=== PATIENT | male | born 1985 | race Caucasian/White ===

== ENCOUNTER 2016-09-05 09:01 | Inpatient (IN) | payer OTHER ==
[2016-09-05] VITALS (8 sets, daily range): BP systolic 120–139; BP diastolic 81–87; PULSE 75–105; RESP 16–18; TEMP 98.3–99; O2SAT 95–100
[~2016-09-05] VITALS: Ht 177.8 cm; Wt 52.7 kg
[2016-09-05] MEDS ORDERED: NALOXONE HCL 0.4 MG/ML AMP IV PRN (09:30)
[2016-09-05] MEDS ORDERED: SODIUM CHLORIDE 0.9% FLUSH 5 ML FLUSH IVF PRN (09:30)
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
[2016-09-05] MEDS: 1/2 NS + KCL 20 MEQ INJ 1,000 ML IV SCH ×2 (12:00→22:00)
[2016-09-05] MEDS ORDERED: ACETAMINOPHEN/HYDROcodone 325 MG/5 MG TAB PO PRN (12:00)
[2016-09-05] MEDS: ONDANSETRON HCL 4 MG/2 ML VIAL IV PRN (12:01)
[2016-09-05] MEDS: HYDROmorphone HCL PF 1 MG/ML VIAL IV PRN ×2 (13:16→19:54)
[2016-09-05] MEDS: ACETAMINOPHEN/HYDROcodone 325 MG/10 MG TAB PO PRN ×2 (16:37→19:54)
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
[2016-09-05] MEDS: SODIUM CHLORIDE 0.9% FLUSH 5 ML FLUSH IVF SCH (19:54)
[2016-09-05] MEDS: DOCUSATE SODIUM 100 MG CAP PO SCH (21:00)
[2016-09-06] VITALS (12 sets, daily range): BP systolic 120–152; BP diastolic 75–98; PULSE 66–112; RESP 13–24; TEMP 93.2–98.7; O2SAT 93–97
[2016-09-06] MEDS: HYDROmorphone HCL PF 1 MG/ML VIAL IV PRN ×5 (00:05→20:52)
[2016-09-06] MEDS: ACETAMINOPHEN/HYDROcodone 325 MG/10 MG TAB PO PRN ×5 (00:05→23:25)
[2016-09-06 04:14] LABS: AUTOMATED NEUTROPHIL # 7.1 TH/MM3 (1.8-7.7); BASOPHIL % 0.4 % (0.0-2.0); EOSINOPHIL # 0.2 TH/MM3 (0-0.4); EOSINOPHIL % 1.8 % (0.0-4.0); HEMATOCRIT 40.6 % (39.0-51.0); HEMO FLAGS DIFF FINAL; LYMPH % 16.4 % (9.0-44.0); LYMPHOCYTE # 1.6 TH/MM3 (1.0-4.8); MEAN CORPUSCULAR HEMOGLOBIN 30.5 PG (27.0-34.0); MEAN CORPUSCULAR HGB CONC 34.3 % (32.0-36.0); MONO % 8.5 % (0.0-8.0); NEUT % 72.9 % (16.0-70.0); PLATELET COUNT 191 TH/MM3 (150-450); RED BLOOD COUNT 4.56 MIL/MM3 (4.50-5.90); RED CELL DISTRIBUTION WIDTH 12.5 % (11.6-17.2); WHITE BLOOD COUNT 9.7 TH/MM3 (4.0-11.0)
[2016-09-06 04:37] LABS: BICARBONATE 28.2 MEQ/L (21.0-32.0); POTASSIUM 4.2 MEQ/L (3.5-5.1)
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
[2016-09-06] MEDS: 1/2 NS + KCL 20 MEQ INJ 1,000 ML IV SCH ×2 (07:53→18:00)
[2016-09-06] MEDS: ONDANSETRON HCL 4 MG/2 ML VIAL IV PRN (07:53)
[2016-09-06] MEDS: SODIUM CHLORIDE 0.9% FLUSH 5 ML FLUSH IVF SCH ×2 (09:00→20:51)
[2016-09-06] MEDS: PANTOPRAZOLE SOD 40 MG DELAYED RELEASE TAB PO SCH (09:00)
[2016-09-06] MEDS: DOCUSATE SODIUM 100 MG CAP PO SCH ×2 (09:00→21:00)
[2016-09-06] MEDS ORDERED: MULTIVITAMIN INJ 10 ML, THIAMINE INJ 100 MG, FOLIC ACID INJ 1 MG in SODIUM CHLORID 0.9%... IV ONE (09:00)
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
[2016-09-07] VITALS: BP 131/87; PULSE 105; RESP 20; TEMP 99.1; O2SAT 96
[2016-09-07] MEDS: HYDROmorphone HCL PF 1 MG/ML VIAL IV PRN ×2 (03:58→08:49)
[2016-09-07 04:00] VITALS: BP 139/82; PULSE 97; RESP 16; TEMP 97.4; O2SAT 95
[2016-09-07 08:37] VITALS: PULSE 94; RESP 17; TEMP 97.1; O2SAT 96
[2016-09-07] MEDS: PANTOPRAZOLE SOD 40 MG DELAYED RELEASE TAB PO SCH (08:50)
[2016-09-07] MEDS: DOCUSATE SODIUM 100 MG CAP PO SCH ×2 (08:50→21:00)
[2016-09-07] MEDS: SODIUM CHLORIDE 0.9% FLUSH 5 ML FLUSH IVF SCH ×2 (08:51→21:00)
[2016-09-07] MEDS ORDERED: HYDR-3583 PO (09:06)
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
[2016-09-07] MEDS: ONDANSETRON HCL 4 MG/2 ML VIAL IV PRN ×2 (09:22→17:42)
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
[2016-09-07 12:29] VITALS: BP 135/80; PULSE 88; RESP 16; TEMP 97.4; O2SAT 96
[2016-09-07] MEDS: ACETAMINOPHEN/HYDROcodone 325 MG/10 MG TAB PO PRN ×2 (12:41→17:41)
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
[2016-09-07 16:24] VITALS: BP 126/89; PULSE 80; RESP 20; TEMP 97.3; O2SAT 100
[2016-09-07 20:00] VITALS: BP 123/83; PULSE 92; RESP 18; TEMP 97.3; O2SAT 100
[2016-09-08] VITALS: BP 130/82; PULSE 83; RESP 20; TEMP 97.5; O2SAT 97
[2016-09-08] MEDS: ACETAMINOPHEN/HYDROcodone 325 MG/10 MG TAB PO PRN ×5 (01:13→18:46)
[2016-09-08 04:00] VITALS: BP 119/81; PULSE 79; RESP 20; TEMP 97.6; O2SAT 96
[2016-09-08 08:23] VITALS: BP 138/80; PULSE 75; RESP 18; TEMP 96.4; O2SAT 95
[2016-09-08] MEDS: DOCUSATE SODIUM 100 MG CAP PO SCH (09:35)
[2016-09-08] MEDS: PANTOPRAZOLE SOD 40 MG DELAYED RELEASE TAB PO SCH (09:35)
[2016-09-08] MEDS: ONDANSETRON HCL 4 MG/2 ML VIAL IV PRN (09:36)
[2016-09-08] MEDS: SODIUM CHLORIDE 0.9% FLUSH 5 ML FLUSH IVF SCH (09:36)
[2016-09-08] MEDS ORDERED: ZOFR4TAB PO (10:44)
--- NOTE | 2016-09-08 10:46 | HHI.FF ---
Face to Face Verification Diagnosis: (1) Polysubstance abuse (2) Traumatic brain injury (3) Cervical spine fracture (4) Scapula fracture Physical Therapy Order: Evaluate and Treat, Improve ambulation Home Health Nursing Order: Nursing assessment with vital signs Substation Mechanic Order: To Evaluate: Living conditions/environment, Support services I have seen patient Sixto Villanueva on 09/08/16. My clinical findings support the need for the requested home health care services because: Impaired cognition/judgement I certify that my clinical findings support that this patient is homebound because: Unsteady gait/balance Unsafe to leave home unassisted Santiago Croft Sep 08, 2016 10:46
[2016-09-08 12:21] VITALS: BP 122/85; PULSE 81; RESP 18; TEMP 91.6; O2SAT 99
--- NOTE | 2016-09-08 13:23 | HHI.NSPN ---
History Chief Complaint: right scapular pain Interval History 09/08/16: Pt awake and alert. Complains of intermittent headache behind his eyes. Intermittent nausea. Some feeling of unsteadiness when he gets up but has been getting up independently to use the bathroom. Review of Systems General: Negative for: fever, chills, insomnia Respiratory: Negative for: shortness of breath, cough, sputum Cardiovascular: Negative for: chest pain Gastrointestinal: Negative for: nausea, vomitting, diarrhea, constipation Exam Results Vital Signs Date Time Temp Pulse Resp B/P Pulse Ox O2 Delivery O2 Flow Rate FiO2 09/08/16 12:21 91.6 81 18 122/85 99 09/07/16 11:39 Room Air 09/06/16 20:00 96 Intake and Output 09/07/16 09/07/16 09/08/16 08:00 16:00 00:00 Intake Total 360 ml Output Total 300 ml 400 ml Balance -300 ml -40 ml Physical Examination Resp: CTA bilaterally Heart: NSR no murmurs Abd: Soft positive bs Skin: No cyanosis or erythema 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 Moves LUE and LEs well 5/5. RUE he keeps close to his body. He is not wearing his sling. Neuro: Pt Awake and alert. Follow simple commands well. Speech clear and appropriate. Face symmetric. Lab, Micro, Other Results Last Impressions Head CT 09/06/16599 Signed Impressions: Service Date/Time: Tuesday, September 06, 2016 06:37 - CONCLUSION: Minimal parafalcine and right frontal subdural hemorrhage. Brennan Xavier MD Chest X-Ray 09/06/16599 Signed Impressions: Service Date/Time: Tuesday, September 06, 2016 06:43 - CONCLUSION: No acute cardiopulmonary abnormality is identified. No pneumothorax is visualized. Additionally, I do not appreciate a right clavicle fracture. Brennan Shah MD 09/07/16 09/07/16 09/08/16 15:00 23:00 07:00 Intake Total 360 ml 600 ml Output Total 400 ml 900 ml Balance -40 ml -300 ml Intake Oral 360 ml 600 ml IV Total 0 ml 0 ml Output Urine Total 400 ml 900 ml # Voids 0 # Bowel Movements 0 0 Medical Decision Making Impression and Plan A: 31 y/o M with mild frontal subdural hemorrhage which decreased on follow up CT head. C7 transverse process fracture Right scapula fracture. P: Extensive discussion with pt, case management, PT, and Neuro floor surfacer. Pt has expected post concussive symptoms complaints. They can continue for even up to 6 months. He is ambulating independently per PT over 500 feet. I have ordered home health, home PT, social psychologist to asses his living environment. He is being discharged today at 6pm to the care of his mother per Case management. Santiago Croft Sep 08, 2016 13:23
[2016-09-08 17:02] VITALS: BP 130/83; PULSE 75; RESP 20; TEMP 96.6; O2SAT 95
== END 2016-09-08 18:59 | disposition home health service (06) | DRG 964 ==
LOC: NEPE 09:01 → NEDA 09:34 → N03B 11:20 → N05A 09-06 21:33
PROVIDERS: ADMIT Neurological Surgery; ATTEND Neurological Surgery
DX: S06.5X0A Traumatic subdural hemorrhage without loss of consciousness, initial encounter (principal); S27.0XXA Traumatic pneumothorax, initial encounter; S12.600A Unspecified displaced fracture of seventh cervical vertebra, initial encounter for closed fracture; F17.210 Nicotine dependence, cigarettes, uncomplicated; V43.62XA Car passenger injured in collision with other type car in traffic accident, initial encounter; Y92.410 Unspecified street and highway as the place of occurrence of the external cause; S42.101A Fracture of unspecified part of scapula, right shoulder, initial encounter for closed fracture; F12.90 Cannabis use, unspecified, uncomplicated; S42.001A Fracture of unspecified part of right clavicle, initial encounter for closed fracture; F14.90 Cocaine use, unspecified, uncomplicated
CPT/HCPCS: 70450; 71020; 80048; 85025; 87641; 94150; J1170; J2405; J3411; J7040; L0150; L0172